=== PATIENT | female | born 1980 | race Caucasian/White ===

== ENCOUNTER 2023-08-22 08:38 | Inpatient (IN) ==
[~2023-08-22 08:38] MED LIST: AMIODARONE 150MG / 100ML D5W IV ONE; AMIODARONE 360MG / 200ML D5W IV ONE; HEPARIN (PORCINE) 1000 UNIT/ML 10 ML (CATH LAB USE ONLY) ONE; HEPARIN SOD (PORCINE) 1000 UNIT/ML ONE; MAGNESIUM SULFATE 1GM / D5W BAG IV ONE; MIDAZOLAM HCL 1 MG/ML 2ML VIAL ONE; NITROGLYCERIN/D5W 100MCG/ML 20ML SYR ONE; RAPID SEQUENCE INDUCTION BAG ONE; TICAGRELOR 90 MG TAB ONE; fentaNYL citrate PF 100 MCG/2 ML VIAL ONE; niCARdipine HCL INJ 2.5 MG/ML 10 ML AMP ONE
[2023-08-22] MEDS ORDERED: ONDANSETRON INJ 2 MG/ML 2 ML VIAL ONE (08:50)
--- NOTE | 2023-08-22 08:55 | Emergency Department Note ---
Impression & Plan ST elevation (STEMI) myocardial infarction, Chest pain ED Provider Note HISTORY OF PRESENT ILLNESS: Patient is a 43-year-old female presenting with chest pain. Patient reports that she had chest pain last night that seem to come and go throughout the evening. She woke up this morning around 7 AM and the pain was significantly worse. Locates pain to the substernal region with radiation into the left arm. Her family called 911. On EMS arrival, twelve-lead EKG showed anterior lateral stroke. She was given 324 of aspirin and 1 spray of nitroglycerin. Immediately after the nitro was given, the patient had ventricular fibrillation arrest and was pulseless. CPR was initiated and she was defibrillated once. She was given 158 mg of amiodarone. EMS called me at medical command because the patient again went into V-fib arrest and was again shocked. She was shocked a total of 5 times and route to the hospital. She would go into sinus rhythm and be alert and oriented after being defibrillated. She was given a total of 300 mg of IV amiodarone and 2 g of IV mag. ROS: as above PHYSICAL EXAM: Constitutional: Patient appears in no acute distress. HENT: Head: Normocephalic and atraumatic. Eyes: EOMI, PERRL Mouth/Throat: Mucous membranes moist. Neck: Trachea midline. Neck supple. Cardiovascular: Tachycardic with regular rhythm. No murmurs, rubs or gallops. Intact distal pulses. Pulmonary/Chest: No respiratory distress. Breath sounds clear and equal bilaterally. No wheezes or rales. Abdominal: Abdomen soft, no tenderness, rebound or guarding. Musculoskeletal: No edema, tenderness or deformity noted. Skin: Warm and dry. No rash, erythema, pallor or cyanosis Psychiatric: Appropriate mood and affect for situation. Neurological: Alert and keenly responsive. CN II-XII grossly intact, moving all extremities equally and fully. MDM: - Vitals signs showed tachycardia - I spoke with EMS and gave orders for patient's repeat 150 mg bolus of IV amiodarone and ordered 2g IV magnesium be given. They showed me the EKGs and a heart alert was called prior to the patient's arrival to the ER. On her arrival, interventional cardiology is present at bedside - EKG on arrival interpreted by myself showed normal sinus rhythm. Rate 105 bpm. Patient is noted to have a STEMI in the anterior lateral leads. - History obtained via patient and EMS. Patient presents with chest pain. Pain initially started last night but significantly worsened this morning and went into her left shoulder. She was noted to have a STEMI with EMS and a heart aler t was called prehospital. She was given 324 of aspirin, nitro spray, 2 g IV mag and a total of 300 mg IV amiodarone prehospital - Chronic conditions affecting care: HTN - Differential diagnoses include, but are not limited to: Acute coronary syndrome; pulmonary embolism; dissection; tension pneumothorax; esophageal rupture; pneumonia - Order placed for continuous cardiac monitoring. At this time, monitor showed rate of 105 bpm with normal sinus rhythm, per my interpretation. - External medical records reviewed. EMS documentation was reviewed. As above. - Discussed case with english tutor, Dr. Price. He was at bedside on patient's arrival and is taking the patient to the [facility]. Patient was given IV heparin bolus and brilinta in ER. - Patient taken to slab installer for further evaluation and management. I provided 38 minutes of critical care time to this patient's care outside of billable procedures. ASSESSMENT AND PLAN: Diagnosis: chest pain; STEMI Plan: to slab installer Allergies Allergies Allergy/AdvReac Type Severity Reaction Status Date / Time No Known Allergies Allergy Mild Verified 11/17/06 14:51 Home Meds Home Medications Medication Instructions Recorded Confirmed Multivit/Min/Iron/Fol Ac/Pren ##0 11/17/06 ( Vitamin) Previous Rx's Medication Instructions Recorded Ibuprofen (Motrin) 600 mg PO Q6HR ##30 03/12/11 Results & Data (ED) Vital Signs Vital Signs - 24 hr 08/22/23 08:39 Temperature 36.8 C Temperature Source Temporal Artery Scan Pulse Rate 103 H Respiratory Rate 18 Sepsis Recent Fever Within 48 Hours No Sepsis New/Unexplained Change in Mental Status No Sepsis Action Taken by Nursing No Action Required Discharge Plan Visit Data Chief Complaint: Heart Alert Stated Complaint: HEART ALERT, POST ARREST ED Provider: Melida Nava Discharge Problem: ST elevation (STEMI) myocardial infarction, Chest pain Discharge Instructions Interventions: ED Discharge Assessment Last Done: 08/22/23 08:53 Forms Stand Alone Forms: My [employer] Prescriptions Prescriptions: No Action Multivit/Min/Iron/Fol Ac/Pren ( Vitamin) tablet Qty: 0 Ibuprofen (Motrin) 600 MG tablet 600 mg PO Q6HR Qty: 30 1RF Rx Instructions: PRN PAIN
[2023-08-22 09:01] LABS: Basophils # (auto) 0.09 K/uL (0.00-0.20); Basophils % (auto) 0.4 %; Eosinophils # (auto) 0.09 K/uL (0.00-0.50); Eosinophils % (auto) 0.4 %; Hematocrit (blood only) 38.3 % (37.0-47.0); Hemoglobin 14.4 g/dl (12.0-16.0); Immature Granulocytes # (auto) 0.19 K/uL (0.01-0.20); Immature Granulocytes % (auto) 0.8 %; Lymphocytes # (auto) 3.65 K/uL (1.20-3.40); Lymphocytes % (auto) 15.7 %; Mean Corpuscular Hemoglobin 33.1 pg (25.0-34.0); Mean Corpuscular Hgb Conc 37.6 g/dL (32.0-36.0); Mean Platelet Volume 9.2 fL (9.4-12.4); Monocytes # (auto) 0.81 K/uL (0.11-0.59); Monocytes % (auto) 3.5 %; Neutrophils # (auto) 18.37 K/uL (1.40-6.50); Neutrophils % (auto) 79.2 %; Platelet Count 359 K/uL (130-400); RDW Coefficient of Variation 13.4 % (11.5-14.5); RDW Standard Deviation 43.2 fL (36.4-46.3); Red Blood Count 4.35 M/uL (4.20-5.40)
[2023-08-22 09:06] LABS: iSTAT Creatinine 0.9 mg/dl (0.6-1.3); iSTAT Hemoglobin 13.3 g/dl (12.0-16.0); iSTAT Ionized Calcium 1.12 mmol/l (1.12-1.32); iSTAT Potassium 3.3 mmol/L (3.3-5.0)
[2023-08-22 09:20] LABS: Albumin Level 3.9 gm/dl (3.4-5.0); Anion Gap 12 (3-11); Bilirubin,Total 1.2 mg/dl (0.2-1.0); Calcium 8.8 mg/dl (8.6-10.3); Carbon Dioxide 17 mmol/L (21-32); Chloride 107 mmol/L (98-107); Potassium 3.4 mmol/L (3.5-5.1); Sodium 136 mmol/L (136-145)
[2023-08-22 09:22] LABS: Partial Thromboplastin Ratio 0.8; Partial Thromboplastin Time 22 Seconds (21-31); Prothrombin Time 10.9 Seconds (9.0-12.0)
[2023-08-22 09:26] LABS: Alanine Aminotransferase 280 U/L (7-52); Albumin Globulin Ratio 1.7 (0.9-2); Alkaline Phosphatase 60 U/L (34-104); Aspartate Aminotransferase 249 U/L (13-39); BUN Creatinine Ratio 15.9 (10-20); Blood Urea Nitrogen 14 mg/dl (6-23); Est GFR (Non-African American) 79.3 ml/min; Globulin 2.3 gm/dl (2.5-4.0); Glucose 251 mg/dl (70-99(Fasting)); Total Protein 6.2 gm/dl (6.0-8.3)
[2023-08-22 09:32] LABS: Troponin I High Sensitivity 14.3 pg/ml (0-14)
--- NOTE | 2023-08-22 09:32 | History & Physical Report ---
Date of Service August 22, 2023 History of Present Illness Primary Care Provider: NO PCP Allergies Allergy/AdvReac Type Severity Reaction Status Date / Time No Known Allergies Allergy Mild Verified 11/17/06 14:51 Home Medications Medication Instructions Recorded Confirmed Type Multivit/Min/Iron/Fol Ac/Pren ##0 11/17/06 History ( Vitamin) Ibuprofen (Motrin) 600 mg PO Q6HR ##30 03/12/11 Rx Results & Data Results & Data Vital Signs (Past 12 Hours) Vital Signs Temp Pulse Resp 08/22/23 08:44 104 H 08/22/23 08:39 36.8 C 103 H 18 PG Care Time/CCT Total # of Minutes Spent Total Time Spent with Patient: Total time spent is greater than 50% in coordination of care (as documented) at patient's floor/unit and/or counseling patient: Coding
[2023-08-22] MEDS ORDERED: AMIODARONE / D5W 360 MG/200 ML BAG IV ONE (09:36)
[2023-08-22] MEDS ORDERED: 0.2 MICRON FILTER SET 1 EACH IV STA (09:36)
[2023-08-22] MEDS ORDERED: ONDANSETRON INJ 2 MG/ML 2 ML VIAL IV PRN (09:46)
[2023-08-22] MEDS ORDERED: ATROPINE SULFATE 0.1 MG/ML 10ML SYR IV PRN (09:46)
[2023-08-22] MEDS ORDERED: NITROGLYCERIN SL 0.4 MG/TAB TAB SL PRN (09:46)
--- NOTE | 2023-08-22 09:55 | Pre Anesthesia Assessment ---
Date of Service August 22, 2023 Pre Sedation Assessment Vital Signs Temp Pulse Resp 08/22/23 08:44 104 H 08/22/23 08:39 36.8 C 103 H 18 Cardiovascular RRR, no murmur, no edema Respiratory normal respiratory effort, lungs clear to auscultation Pre-Sedation Airway Assessment MALLAMPATI II ASA 4 Notes The planned sedation has been discussed with the patient. Informed Consent was obtained. I have identified the patient, determined the appropriateness of sedation and have assessed the patient immediately prior to the procedure. All medicine(s) and interventions are by my order.
--- NOTE | 2023-08-22 09:58 | Post Anesthesia Assessment ---
Date of Service August 22, 2023 Post Sedation Assessment Vital Signs Temp Pulse Resp 08/22/23 08:44 104 H 08/22/23 08:39 36.8 C 103 H 18 Recovery Score Activity: Moves 4 extremities Respiration: Deep Breath/Cough Circulation: +/-20% PreAnes Value Consciousness: Fully Awake Oxygen Saturation: > 92% On Room Air Discharge Sedation Level of Care: Fast Track Phase II Post Sedation Plan On clinical assessment, the patient appears to have tolerated the sedation without complications. Patient is recovering as anticipated. Patient will continue to be monitored by nursing and may be discharged when sedation discharge criteria are met per below protocol. Upon Completions of procedure up to 15 minutes continue every 5 minute vital signs and the P.A.R. score; then discharge to a Phase I or Fast Track to Phase II per the following guidelines: * Discharge Patient to appropriate Phase II area if PAR is 8 or greater or return to pre- procedure baseline. The post - procedure orders will be as directed. * If PAR score is less than 8 or not return to pre-procedure baseline then patient will follow Phase I monitoring till PAR is reached for Phase II. The Phase I may be done in procedure room or may call to secure a Phase I area. * If naloxone or flumazenil are used for reversal, hold in Phase I for continued monitoring from when last reversal dose was given for a minimum of 60 minutes or longer pending the nurse and/or physician discretion of patient condition before discharge to Phase II. Please call the Sedation Physician to re-evaluate and complete post-note for discharge to Phase II area. Do NOT discharge from procedure sedation or Phase 1 until post- sedation evaluation note is complete by procedure /sedation MD Sedation Discharge Instructions to be given to the patient at discharge to home. [facility] Procedure Codes (Charges) Indication for Procedure Indication for procedure: CARDIAC ARREST MARLENE-LATERAL STEMI Sedation/Anesthesia Procedure 1: Sedation/Anesthesia: 84610 Mod Sedation by the same physician;Init15 Min Child Age 5 & Up (start 55) Total Sedation Time (minutes): 43 Procedure 2: Sedation/Anesthesia: 45352 Mod Sedation by the same physician; Ea [id number] Minutes (additional 28 min, end 0938) Total Sedation Time (minutes): 43
[2023-08-22] MEDS ORDERED: PHARMACY GLYCEMIC MGMT CONSULT PRN (10:33)
--- NOTE | 2023-08-22 10:51 | History & Physical Report ---
Date of Service August 22, 2023 Assessment & Plan (1) ST elevation (STEMI) myocardial infarction: Plan: Patient with anterio-lateral STEMI with 100% occlusion of the LAD. Now s/p CARLENE placement in the LAD by Dr. Easley on 08/22. Stable on amiodarone gtt. Now on DAPT with Brilinta and ASA. Started on atorvastatin 40 mg and metoprolol 25 mg BID. Follow electrolyte abnormalities with AM BMP. AM BMP - Goal K > 4, Mg > 2 Lipid level and HbA1c pending DAPT - Brilinta and ASA ECHO ordered CXR ordered Requiring ICU level care in the post-interventional period. Rest of management per biomechanical engineer. (2) Cardiac arrest with successful resuscitation: Plan: Stable on amiodarone gtt. Continue to monitor with continuous cardiac monitoring. (3) Hyperglycemia: Plan: No know history of diabetes. Screening glucose level in 2021 was < 90. May be reactive in the setting of recent MA. Glycemic consult placed. Continue to natasha tor. (4) Hypertension: Plan: Holding home olmesartan in setting of recent MA and soft BPs. (5) Hypokalemia: Plan: Monitor and replete as indicated (6) Anxiety: Plan: Continue home citalopram. (7) Status post insertion of drug-eluting stent into left anterior descending (LAD) artery: Plan: See above (8) Ventricular fibrillation: Plan: See above Plan Code status: full DVT ppx: on DAPT FENGI: Heart Healthy Dispo: ICU level care in the post-interventional period Admission and Anticipated Discharge Date Admission Date: August 22, 2023 History of Present Illness Chief Complaint: chest pain Primary Care Provider: NO PCP 43 y/o female here for evaluation of chest pain. Patient with intermittently chest pain the evening of 08/21. Patient significantly worse this AM with localization to the substernal region and radiates into the left arm. EMS was called and EKG showed anterior lateral stroke. Patient ASA loaded and given a spray of nitro. Patient then went into ventricular fibrillation and was pulseless. CPR initiated and several shocks were administered during the route to the hospital with a total of 5 shocks, 300 mg IV amiodarone, 2 g of IV mag. Patient was seen at bedside by Dr. Easley and taken to the mini lab operator. 100% occlusion in LAD thus CARLENE placed. Patient now on amiodarone gtt and stable in the ICU. Upon my interview, patient denies any chest pain, nausea, calf tenderness, or shortness of breath. Symptoms resolved at present. Patient generally in good health. Screening lipids and glucose have been normal in the past. Hypertension well controlled on olmesartan. Allergies Allergy/AdvReac Type Severity Reaction Status Date / Time No Known Allergies Allergy Mild Verified 11/17/06 14:51 Home Medications Medication Instructions Recorded Confirmed Type Multivit/Min/Iron/Fol Ac/Pren ##0 11/17/06 History ( Vitamin) Ibuprofen (Motrin) 600 mg PO Q6HR ##30 03/12/11 Rx citalopram 10 mg tablet 5 - 10 mg PO DAILY 08/22/23 08/22/23 History olmesartan 20 mg tablet 20 mg PO DAILY 08/22/23 08/22/23 History Past Med/Surg History Social History Smoking Status: Former smoker Second Hand Exposure: No; Do You Dip or Chew Tobacco: No; Hx Alcohol Use: Yes Alcohol type: beer, wine and hard liquor Hx Substance Use: No Communication Ability: Effective Telecommunication Operator Required: No Beliefs That Will Affect Care: None Current Living Situation: Family Feels Safe at Home: Yes Assistive Devices: Contacts and Glasses Review of Systems Review of Systems: See HPI Physical Exam Physical Exam: Gen: well appearing female in NAD, resting comfortably in bed HEENT: AT NC MMM CV: RRR, no m/r/g, right radial hemostasis band in place with no strike through, cap refill < good perfusion of right arm Resp: CTAB no wheezing no increased work of breathing no accessory muscle use Abd: soft, non-distended MSK: no obvious deformities Skin: no rashes or bruising noted Neuro: alert and oriented Psych: appropriate mood and affect, tearful Results & Data Results & Data Vital Signs (Past 12 Hours) Vital Signs Temp Pulse Resp 08/22/23 08:44 104 H 08/22/23 08:39 36.8 C 103 H 18 Supervising Physician Co-Signing Physician Notes I personally saw and examined the patient. I verified all wilcox points and agree with Julia Hughes PA-C with the following exceptions and/or additions: Resident Activity Tracking Resident Involvement: Resident Care Provided Care Provided: Adult Hospital Medicine
[2023-08-22 11:02] LABS: Hematocrit (blood only) 39.9 % (37.0-47.0); Hemoglobin 14.7 g/dl (12.0-16.0); Mean Corpuscular Hemoglobin 32.9 pg (25.0-34.0); Mean Corpuscular Hgb Conc 36.8 g/dL (32.0-36.0); Mean Corpuscular Volume 89.3 fL (80.0-100.0); Mean Platelet Volume 9.4 fL (9.4-12.4); Platelet Count 264 K/uL (130-400); RDW Coefficient of Variation 13.4 % (11.5-14.5); RDW Standard Deviation 43.6 fL (36.4-46.3); Red Blood Count 4.47 M/uL (4.20-5.40)
--- NOTE | 2023-08-22 11:09 | Pharmacy Report ---
Pharmacy Glycemic Short Note 2 - Date of Service August 22, 2023 - Glycemic Short BSG Results (Last 24 hours): 08/22/23 08/22/23 08:47 08:52 Glucose 251 H POC Glucose (other) 251 H OUTPATIENT ANTIDIABETIC REGIMEN: * None (no prior documented h/o DM) ASSESSMENT: * Patient admitted to ICU for out of hospital cardiac arrest / v fib / STEMI. She is now s/p CARLENE to LAD * No prior h/o of documented DM, A1c ordered - but results are pending * Hyperglycemia observed on chemistry and initial fingerstick BSG - this could be related to acute stressors and could be short lived. Will initiate correctional insulin Q 4 hrs initially using weight and mod/severe stress level. Will reassess need for basal and prandial insulin once additional BSGs collected following correction alone and once A1c available for review. PLAN FOR INPATIENT GLYCEMIC CONTROL: * Basal insulin * None at this time * Bolus insulin * NovoLog per scale Q 4 hrs * Goal Range: Low 110 mg/dL - High 140 mg/dL * Correction Factor: 30 mg/dL/unit * Nutritional / Prandial insulin: None at this time.
[2023-08-22 11:16] LABS: Anion Gap 9 (3-11); BUN Creatinine Ratio 15.4 (10-20); Blood Urea Nitrogen 12 mg/dl (6-23); Calcium 8.5 mg/dl (8.6-10.3); Carbon Dioxide 20 mmol/L (21-32); Chloride 107 mmol/L (98-107); Est GFR (African American) 106.4 ml/min; Est GFR (Non-African American) 91.8 ml/min; Glucose 168 mg/dl (70-99(Fasting)); Magnesium 2.3 mg/dl (1.7-2.4); Potassium 3.4 mmol/L (3.5-5.1); Sodium 136 mmol/L (136-145)
[2023-08-22 11:21] LABS: Basophils # (auto) 0.08 K/uL (0.00-0.20); Basophils % (auto) 0.3 %; Echinocytes 1+; Eosinophils # (auto) 0.01 K/uL (0.00-0.50); Immature Granulocytes # (auto) 0.24 K/uL (0.01-0.20); Lymphocytes # (auto) 1.27 K/uL (1.20-3.40); Lymphocytes % (auto) 5.4 %; Monocytes # (auto) 0.85 K/uL (0.11-0.59); Monocytes % (auto) 3.6 %; Neutrophils # (auto) 21.25 K/uL (1.40-6.50); Neutrophils % (auto) 89.7 %
[2023-08-22 11:25] LABS: Troponin I High Sensitivity 1443.3 pg/ml (0-14)
[2023-08-22] MEDS ORDERED: ICU Protocol for HYPERglycemia SCH (11:30)
[2023-08-22] MEDS: SODIUM CHLORIDE 0.9% 1,000 ML IV SCH ×2 (11:36→22:06)
[2023-08-22] MEDS: ATORVASTATIN 40 MG TAB PO SCH (11:37)
[2023-08-22] MEDS ORDERED: INSULIN ASPART PER UNIT CHARGE SC SCH (12:00)
--- NOTE | 2023-08-22 12:07 | Electrocardiogram Report ---
Test Reason : Blood Pressure : / mmHG Vent. Rate : 086 BPM Atrial Rate : 086 BPM P-R Int : 156 ms QRS Dur : 082 ms QT Int : 388 ms P-R-T Axes : 073 034 050 degrees QTc Int : 464 ms Normal sinus rhythm Normal ECG No previous ECGs available Confirmed by Scott Monsalve ([id number]) on 08/22/2023 12:06:53 PM Referred By: REFERRED SELF Confirmed By:Scott Monsalve
[2023-08-22] MEDS ORDERED: AMIODARONE / D5W 150 MG/100 ML BAG IV STA (12:16)
[2023-08-22] MEDS ORDERED: AMIODARONE IV BOLUS & DRIP IV STA (12:16)
[2023-08-22] MEDS ORDERED: STAT IV Infusion **Titration per Protocol STA (12:16)
--- NOTE | 2023-08-22 12:23 | Critical Care Consultation ---
Date of Consultation August 22, 2023 Assessment & Plan (1) ST elevation (STEMI) myocardial infarction: Reason Critically Ill: Status post cardiac arrest secondary to ventricular fibrillation with return of spontaneous circulation secondary to ST elevation [place] secondary to ischemic heart disease PLAN: Neuro: Resp: Tolerating room air CV: Ischemic heart disease Status post STEMI - Dual antiplatelet therapy -Statin therapy, beta-janette -Echo pending Fluids/Renal: Mild hypokalemia ID: No indication for anti-infectives GI/Nutrition: Transaminitis -Acute hepatitis panel in a.m., continue to trend possibly shock liver secondary to V-fib arrest Fasting lipid profile in morning Heme: Leukocytosis: Acute phase reactant DVT prophylaxis: Lovenox Endocrine: ICU hyperglycemia protocol Hyperglycemia -A1c within acceptable limits anticipate hyperglycemia is acute phase reaction Vascular access: Peripheral IVs Code Status: Full code Disposition: ICU (2) Ventricular fibrillation: (3) Cardiac arrest with successful resuscitation: (4) Hypertension: (5) Status post insertion of drug-eluting stent into left anterior descending (LAD) artery: (6) Ischemic heart disease due to coronary artery obstruction: Supervising Physician Co-Signing Physician Notes I have personally spent 35 minutes of critical care time in the direct management of this patient. This is a life/limb threatening event. This includes time spent evaluating patient, direct bedside care, chart review, placing orders, interpretation of diagnostic studies, discussion with consultants, patient, and/or family members regarding treatment decisions, as well as other required patient management activities. This time is exclusive of all separately billable procedures, and teaching time and separate from and in addition to any other critical care service time. History of Present Illness Reason for Consultation: Status postcardiac arrest with spontaneous return of circulation, status post ST elevation [place] underwent cardiac cath Attending Physician: Brenton Porter MD History of Present Illness Patient is a 43-year-old female with a significant past medical history for hypertension presents to the ICU from the cardiac [facility] where she received a drug-eluting stent to the LAD. Additional history as the patient had been having chest pain off and on it got worse this morning which the family called 911. Upon EMSs arrival and during their evaluation they treated the placement with nitroglycerin the patient suffered a ventricular fibrillation arrest. In total she was shocked 5 times and started on amiodarone. During my evaluation the chest pain by enlarge part has resolved. She reports that she has a strong family history of cardiac disease before the age of 55 including a sister who suffered a heart attack in her 40s. She does not smoke she occasionally drinks alcohol denies any recreational drug use. Allergies Allergy/AdvReac Type Severity Reaction Status Date / Time No Known Allergies Allergy Mild Verified 11/17/06 14:51 Home Medications Medication Instructions Recorded Confirmed Type Multivit/Min/Iron/Fol Ac/Pren ##0 11/17/06 History ( Vitamin) Ibuprofen (Motrin) 600 mg PO Q6HR ##30 03/12/11 Rx citalopram 10 mg tablet 5 - 10 mg PO DAILY 08/22/23 08/22/23 History olmesartan 20 mg tablet 20 mg PO DAILY 08/22/23 08/22/23 History Patient History Social History Smoking Status: Former smoker Second Hand Exposure: No; Do You Dip or Chew Tobacco: No; Tobacco Cessation Education Requested by Patient: No Hx Alcohol Use: Yes Alcohol type: beer, wine and hard liquor Hx Substance Use: No Communication Ability: Effective Etl Informatica Architect Required: No Beliefs That Will Affect Care: None Current Living Situation: Family Other Information That Helps Us Care for You: No Feels Safe at Home: Yes Safety Concerns: Feels Safe At This Time Assistive Devices: Contacts and Glasses Physical Exam Physical Exam: General: Alert. nontoxic. Skin: Warm, dry, Head: Atraumatic Ears, nose, mouth and throat: airway patent Cardiovascular: Normal peripheral perfusion Respiratory: no respiratory distress Gastrointestinal: Non distended Musculoskeletal: No deformity Results & Data Results & Data Vital Signs (Past 12 Hours) Vital Signs Temp Pulse Pulse Resp BP BP Pulse Ox 08/22/23 11:50 08/22/23 11:45 90 12 99 08/22/23 11:45 128/87 08/22/23 11:44 91 H 08/22/23 11:30 103 H 21 96 08/22/23 11:30 102/75 08/22/23 11:20 92 H 14 113/85 96 08/22/23 11:15 113/85 08/22/23 11:15 90 12 98 08/22/23 11:00 95 H 16 97 08/22/23 11:00 104/86 08/22/23 10:45 97 H 13 99 08/22/23 10:45 101/81 08/22/23 10:30 98 H 14 97 08/22/23 10:30 105/83 08/22/23 10:15 89 20 98 08/22/23 10:15 114/82 08/22/23 10:00 110/90 08/22/23 10:00 99 H 23 97 08/22/23 09:56 92 H 23 99 08/22/23 09:56 115/80 08/22/23 08:44 104 H 08/22/23 08:39 36.8 C 103 H 18 O2 Del Method 08/22/23 11:50 Room Air 08/22/23 11:45 08/22/23 11:45 08/22/23 11:44 08/22/23 11:30 08/22/23 11:30 08/22/23 11:20 Room Air 08/22/23 11:15 08/22/23 11:15 08/22/23 11:00 08/22/23 11:00 08/22/23 10:45 08/22/23 10:45 08/22/23 10:30 08/22/23 10:30 08/22/23 10:15 08/22/23 10:15 08/22/23 10:00 08/22/23 10:00 08/22/23 09:56 08/22/23 09:56 08/22/23 08:44 08/22/23 08:39 Coding Level of Care Code 55976 CRITICAL CARE 1ST 30-74M Diagnoses ST elevation myocardial infarction involving left anterior descending (LAD) coronary artery I21.02 Involved coronary artery: LAD coronary artery Ventricular fibrillation I49.01 Cardiac arrest with successful resuscitation I46.9 Primary hypertension I10 Hypertension type: primary hypertension Status post insertion of drug-eluting stent into left anterior descending (LAD) artery Z95.5 Ischemic heart disease due to coronary artery obstruction I24.0; I25.9 (1) ST elevation (STEMI) myocardial infarction Involved coronary artery: LAD coronary artery Qualified Code(s): I21.02 - ST elevation (STEMI) myocardial infarction involving left anterior descending coronary artery (4) Hypertension Hypertension type: primary hypertension Qualified Code(s): I10 - Essential (primary) hypertension
[2023-08-22 12:24] LABS: Estimated Average Glucose 77 mg/dl; Hemoglobin A1C 4.3 % (4.5-5.6)
[2023-08-22] MEDS: ACETAMINOPHEN 325 MG TAB PO PRN (12:32)
--- NOTE | 2023-08-22 13:23 | XRay Report ---
XR chest 1V portable HISTORY: 43 years-old Female cardiac arrest s/p CPR acute chest pain COMPARISON: None TECHNIQUE: AP view of the chest FINDINGS: Cardiac silhouette is mildly enlarged. Coronary arterial stent. No pneumothorax, pleural effusion, ai rspace consolidation or pulmonary edema. Bones appear grossly intact by radiography. IMPRESSION: No acute process. ACT 112: Negative or not required by law. The above report was generated using voice recognition software. It may contain grammatical, syntax o r spelling errors. Electronically signed by: Karthik Arango M.D. 08/22/2023 1:21 PM
[2023-08-22] MEDS ORDERED: POTASSIUM CHLORIDE / WTR 10 MEQ/100 ML PLCT IV SCH (14:00)
[2023-08-22] MEDS ORDERED: POTASSIUM CHLORIDE CRTAB 20 MEQ TABCR PO STA (14:27)
[2023-08-22] MEDS: AMIODARONE / D5W 360 MG/200 ML BAG IV SCH (14:46)
--- NOTE | 2023-08-22 14:51 | Cardiac Catheterization ---
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 Cardiac Status Clinical evaluation leading to the procedure CAD Presenation: STEMI Anginal Classification: CCS IV Heart Failure: No Cardiogenic Shock within 24 Hours: No Cardiac Arrest within 24 Hours: Yes Imaging Studies Past 6 Months: No Stress Studies Past 6 Months: No STEMI OR Non-STEMI Symptom Onset Date: 08/22/23 Thrombolytics: No Coronary Anatomy Dominant: Right Left Main (% Stenosis): Normal LAD (% Stenosis): Proximal (100%) Circumflex (% Stenosis): Normal (Mild diffuse) OM1 (% Stenosis): Ostial (30 to 40%) OM2 (% Stenosis): Normal RCA (% Stenosis): Proximal (Mild diffuse), Mid (40 to 50% focal) and Distal (Mild diffuse) R PDA (% Stenosis): Proximal (30%) R PL1 (% Stenosis): Normal (Mild diffuse) Ramus (% Stenosis): Normal Diagnostic Physicians Name: Ronald Price MD, PhD Closure Device Percutaneous Entry Location: Radial Closure Device: Radial Band Recommendations: Medical Therapy and/or Counseling and PCI without planned CABG PCI Indication: PCI for STEMI - Unstable Lesion Segment Name: Proximal LAD Culprit Artery: Yes Stenosis Prior to Rx (%): 100% Chronic Total Occlusion: No Pre-Procedure NAIMA Flow: 0 Previously Treated Lesion: No Lesion Complexity: Non-High/Non-C Lesion Length (mm): 22 Thrombus Present: Yes Bifurcation Lesion: Yes Guidewire Across Lesion: Yes Intraprocedure Events Significant Disection: No Perforation: No Cardiac Cath Procedure Full Procedure Date August 22, 2023 Pre-Procedure Diagnosis Pre-Procedure Diagnosis: STEMI and Arrhythmia AUC Score AUC Score: 09 Post-Procedure Diagnosis Post-Procedure Diagnosis: Severe CAD and Successful PCI Procedure(s) Performed Procedure(s) Performed: Coronary Angiography and Drug Eluting Stent Records And Tape Recordings Engineer Ronald Price MD, PhD Estimated Blood Loss Estimated Blood Loss: 5 mL Medication(s) Medication(s): Fentanyl, Heparin, Lidocaine 1%, Nicardipine, Nitroglycerin and Versed Summary of Findings Brief description: Patient was brought emergently to the cardiac catheterization suite where she was shaved and prepped in a sterile fashion. Sedated using IV Versed and fentanyl. Soft tissues of the right wrist were anesthetized using 2 mL of 1% Xylocaine. The right radial artery was accessed with a modified Seldinger technique and a 6 Palestinian radial artery glide sheath was placed. Patient was provided anticoagulation with IV heparin and antispasmodics including nicard ipine and nitroglycerin. All catheters were advanced and exchanged over a 0.035 J-tip wire. Left coronary angiography was performed in orthogonal views with a 6 Palestinian EBU 3.0 guide catheter. Based on the patient's findings and electrical instability we proceeded immediately to PCI. ACT was checked intermittently and additional heparin provided IV as needed to maintain therapeutic anticoagulation. BMW reversal guidewire advanced through the guide catheter and positioned distally in the LAD. Initial predilatation using a 2.5 x 12 mm sprinter balloon up to 14 quinton. Balloon removed and assisted living assistant angiography performed. A second BMW universal guidewire was advanced and used to cross the ostium of the diagonal to ensure access to the diagonal if needed. Predilatation of the LAD was then resumed using a 3.0 x 15 mm sprinter balloon up to 12 quinton. The balloon was then removed. Foam Tank Laminator angiography was performed and we proceeded with stent implantation. A 3.0 x 26 mm Chuy drug-eluting stent was then advanced and positioned across the lesion in the proximal to the mid LAD. This was initially deployed using 10 quinton. The BMW universal guidewire in the diagonal was then retracted into the guide catheter. A second inflation was performed for final deployment at 14 quinton. Stent balloon was removed. Postdilatation of the proximal and mid stent were performed using a 3.25 by 8 mm NC trek balloon. 13 quinton at the mid to early distal stent, 15 quinton in the mid stent, and 18 quinton in the proximal stent. A final postdilatation using a 3.5 x 9 mm NC sprinter balloon. From proximal to mid stent at 14 quinton, 12 quinton, and 12 quinton. Balloon was removed. Final angiographic evaluation in orthogonal views. Guidewires were removed. Guide catheter was then exchanged over the wire for the 5 Palestinian JR4 diagnostic catheter so that diagnostic coronary angiography could be completed. Right coronary angiography was performed in orthogonal views with a 5 Palestinian JR4 diagnostic catheter. Diagnostic catheter was then removed. Radial artery sheath was removed. Hemostasis was obtained using the TR band. Patient remained hemodynamically stable and was now asymptomatic. She was returned to the recovery area. This ended the case. Coronary angiography findings: JHG-tectk-burmnqj vessel trifurcating into LAD, circumflex, and ramus. No disease. LAD-this is 100% occluded proximally with NAIMA 0 flow. Large thrombus burden. Ramus-this is small without disease. FUj-cpgrh-kdksoec and nondominant. Proximal segment in the AV groove has mild disease of less than 20% narrowing. Gives a large caliber branching OM1 which has ostial 30 to 40% stenosis and then no more than mild luminal irregularities. The mid AV groove vessel remains large and has diffuse mild disease. Provides a small to medium caliber OM 2. The OM 2 and the small caliber distal AV groove circumflex have no more than mild luminal irregularities. RCA-this is large caliber and dominant. Proximally there is diffuse mild disease. Mid segment has focal 40 to 50% stenosis with otherwise mild scattered plaques. Distally there is mild diffuse disease less than 30% narrowing. The vessel bifurcates into a large PDA and large branching posterolateral. These vessels have diffuse mild disease no more than 30% stenosis. PCI of LAD-0% residual stenosis Post PCI the mid and distal LAD are visualized. The first diagonal is medium to large with an ostial 50% stenosis which is "jailed". Proximal gives a large septal branch. The mid and distal vessel have mild scattered disease. NAIMA-3 flow post PCI No evidence of dissection or perforation post PCI Summary: 1. Successful PCI with implantation of a long and large caliber drug-eluting stent to the proximal to mid LAD. 2. Severe LAD stenosis is culprit for cardiac arrest and TX. Patient has mild residual coronary disease as described. 3. Patient will be on dual antiplatelet therapy using aspirin and Brilinta to complete 1 year. 4. Patient will be initiated on guideline directed medical therapy for secondary prevention of coronary disease to include; low-dose aspirin, high intensity statin therapy, beta-janette, plus or minus BERNABE inhibitor/ARB as tolerated. 5. Strongly recommend CARDIAC REHAB be initiated as an outpatient. Hemodynamics Rest Ao:: 123/88 mmHg Final Ao: 106/89 mmHg LV: Not performed Recommendations Recommendations: Medical Therapy and/or Counseling and PCI without planned CABG Radiation Exposure (mGy) 1175 mGy, fluoroscopy time 11.7 minutes Contrast (mls) 125 Anesthesia 1 mg IV Versed, 25 mcg IV fentanyl. Start time 0855, end time 0938 Procedural Complication(s) None Disposition ICU I attest to the content of the Intraoperative Record and any orders documented therein. Any exceptions are noted below. [facility] Card Cath Procedure Codes Cardiac Catheterization Procedure 1: Cardiovascular Cath Procedures: 72568 Coronaries Moderate Sedation Procedure 1: Sedation/Anesthesia: 33189 Mod Sedation by the same physician;Init15 Min Child Age 5 & Up (Initial 15 min, start 0855) Procedure 2: Sedation/Anesthesia: 05336 Mod Sedation by the same physician; Ea [id number] Minutes (Additional 28 min, END 0938) Stenting Procedure 1: Cardiovascular Stent Procedures: 65562 Perc transluminal revascularization of acute sub/total occl, aMI (LAD) PG Care Time/CCT Total # of Minutes Spent Total Time Spent with Patient: Total time spent is greater than 50% in coordination of care (as documented) at patient's floor/unit and/or counseling patient:
--- NOTE | 2023-08-22 15:20 | Cardiology Consultation ---
Date of Consultation August 22, 2023 Assessment & Plan (1) Cardiac arrest with successful resuscitation: Secondary to proximal LAD occlusion. We will obtain an echocardiogram to evaluate EF. Continue to monitor. Complete the amiodarone protocol. (2) ST elevation (STEMI) myocardial infarction: Occlusion of the proximal LAD which was predominantly thrombotic but also with atherosclerosis. Successful PCI performed with a large caliber long drug- eluting stent covering the proximal and mid LAD lesion. Good angiographic result with return of NAIMA-3 flow. The diagonal ostium is jailed but with NAIMA- 3 flow. She has mild to moderate residual disease in the right coronary as described. She will remain on dual antiplatelet therapy with aspirin 81 mg daily and Brilinta 90 mg p.o. twice daily to complete at least 1 year. She is to be initiated on guideline directed medical therapy for secondary prevention of coronary disease. This will include high intensity statin therapy (a atorvastatin 40 mg daily), beta-janette (metoprolol tartrate 25 mg p.o. twice daily), and depending on her echo we may also initiate an BERNABE inhibitor or angiotensin receptor janette if her blood pressure would allow. Further recommendations pending results of echocardiogram. (3) Hypertension: Previous regimen with olmesartan. We are adding beta-janette and holding BERNABE or ARB at this time. We may resume an angiotensin receptor janette prior to discharge if her blood pressure will allow. 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 High intensity statin therapy is recommended. Target LDL reduction is greater than or equal to 50% of untreated baseline LDL. We will obtain a fasting lipid panel in the morning. She has been started on a atorvastatin 40 mg daily. Plan She will remain in the ICU for 24 hours postarrest. Initiate therapy as above. Assuming that the echo does not demonstrate any concerning findings and she has no complications within the next 48 hours she would then be appropriate for discharge. I do strongly recommend that she begin outpatient cardiac rehab after discharge. I will follow. History of Present Illness Reason for Consultation: Cardiac arrest Acute NC Attending Physician: Brenton Porter MD History of Present Illness 43-year-old female without prior cardiac history developed sudden onset chest pain while at home. She then developed cardiac arrest. She was treated and transported by EMS who states she was shocked twice at her home for ventricular fibrillation and 3 times and route for ventricular fibrillation. Each time she immediately regained consciousness and was appropriately responsive. She received 150 mg IV amiodarone x 2. I met her in the emergency department where she was awake with good blood pressure. She had persistent chest discomfort and her EKG suggested extensive anterolateral ST elevations suggesting proximal LAD occlusion. As she was being attended to and made ready for admission I spoke with her regarding need for emergent cardiac catheterization. Informed consent was obtained from him with the consent being signed by him. She was then taken emergently to the cardiac catheterization suite where she underwent coronary angiography and PCI of the LAD with implantation of a large caliber long drug-eluting stent. Good angiographic results and resolution of both her pain and ST elevations. She is now admitted to the intensive care unit for further workup and management. She reports that she did have some chest burning on Saturday and some chest tightness last night preceding her event this morning. She tells me her father of cardiac arrest at age 45. Her sister had myocardial infarction at age 46. She denies any preceding anginal/exertional chest pain, dyspnea on exertion, syncope, near syncope, orthopnea, PND, racing heartbeat, palpitations, or edema. She is active. She works as a teacher at the [employer]. Allergies Allergy/AdvReac Type Severity Reaction Status Date / Time No Known Allergies Allergy Mild Verified 11/17/06 14:51 Home Medications Medication Instructions Recorded Confirmed Type Multivit/Min/Iron/Fol Ac/Pren ##0 11/17/06 History ( Vitamin) Ibuprofen (Motrin) 600 mg PO Q6HR ##30 03/12/11 Rx citalopram 10 mg tablet 5 - 10 mg PO DAILY 08/22/23 08/22/23 History olmesartan 20 mg tablet 20 mg PO DAILY 08/22/23 08/22/23 History Patient History Social History Smoking Status: Former smoker Second Hand Exposure: No; Do You Dip or Chew Tobacco: No; Tobacco Cessation Education Requested by Patient: No Hx Alcohol Use: Yes Alcohol type: beer, wine and hard liquor Hx Substance Use: No Communication Ability: Effective 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 Sclera are anicteric. ENMT: Oral mucosa is pink moist and intact Neck: No JVD or bruits Respiratory: Clear to auscultation bilaterally. No wheezing, rhonchi, or rales. Cardiovascular: Regular rate and rhythm. S4 gallop. No rubs or murmurs appreciated. No edema. 2+ distal pulses. Musculoskeletal: no cyanosis or clubbing, extremities motor strength 5/5 Neurologic: Cognition is intact. Speech is fluent. No focal deficits. No tremor. Psychiatric: A+Ox3, euthymic affect Results & Data Vital Signs (Past 12 Hours) Vital Signs Temp Pulse Pulse Resp BP BP Pulse Ox 08/22/23 12:15 111/89 08/22/23 12:15 93 H 18 97 08/22/23 12:00 88 14 96 08/22/23 12:00 105/84 08/22/23 11:50 08/22/23 11:45 90 12 99 08/22/23 11:45 128/87 08/22/23 11:44 91 H 08/22/23 11:30 103 H 21 96 08/22/23 11:30 102/75 08/22/23 11:20 92 H 14 113/85 96 08/22/23 11:15 113/85 08/22/23 11:15 90 12 98 08/22/23 11:00 95 H 16 97 08/22/23 11:00 104/86 08/22/23 10:45 97 H 13 99 08/22/23 10:45 101/81 08/22/23 10:30 98 H 14 97 08/22/23 10:30 105/83 08/22/23 10:15 89 20 98 08/22/23 10:15 114/82 08/22/23 10:00 110/90 08/22/23 10:00 99 H 23 97 08/22/23 09:56 92 H 23 99 08/22/23 09:56 115/80 08/22/23 08:44 104 H 08/22/23 08:39 36.8 C 103 H 18 O2 Del Method 08/22/23 12:15 08/22/23 12:15 08/22/23 12:00 08/22/23 12:00 08/22/23 11:50 Room Air 08/22/23 11:45 08/22/23 11:45 08/22/23 11:44 08/22/23 11:30 08/22/23 11:30 08/22/23 11:20 Room Air 08/22/23 11:15 08/22/23 11:15 08/22/23 11:00 08/22/23 11:00 08/22/23 10:45 08/22/23 10:45 08/22/23 10:30 08/22/23 10:30 08/22/23 10:15 08/22/23 10:15 08/22/23 10:00 08/22/23 10:00 08/22/23 09:56 08/22/23 09:56 08/22/23 08:44 08/22/23 08:39 PG Care Time/CCT Total # of Minutes Spent Total Time Spent with Patient: Total time spent is greater than 50% in coordination of care (as documented) at patient's floor/unit and/or counseling patient: A total of 60 minutes critical care time was taken for initial evaluation and examination, discussion with the patient, her family, and the care team, review of the records, formulation and implementation of a plan of care, and all associated documentation. This time is exclusive of the time spent for the procedure. Coding Level of Care Code 27749 CRITICAL CARE 1ST 30-74M Diagnoses Cardiac arrest with successful resuscitation I46.9 ST elevation myocardial infarction involving left anterior descending (LAD) coronary artery I21.02 Involved coronary artery: LAD coronary artery Primary hypertension I10 Hypertension type: primary hypertension Atherogenic dyslipidemia E78.5 Time Spent (min) 60 (2) ST elevation (STEMI) myocardial infarction Involved coronary artery: LAD coronary artery Qualified Code(s): I21.02 - ST elevation (STEMI) myocardial infarction involving left anterior descending coronary artery (3) Hypertension Hypertension type: primary hypertension Qualified Code(s): I10 - Essential (primary) hypertension
[2023-08-22] MEDS: INSULIN ASPART PER UNIT CHARGE SC SCH (17:33)
[2023-08-22] MEDS ORDERED: LORazepam 0.25 MG in SYRINGE 0.25 ML IV PRN (19:59)
[2023-08-22] MEDS ORDERED: LORazepam 0.25 MG in SYRINGE 0.125 ML IV PRN (20:42)
[2023-08-22] MEDS: METOPROLOL TARTRATE 25 MG TAB PO SCH (20:51)
[2023-08-22] MEDS: TICAGRELOR 90 MG TAB PO SCH (20:51)
[2023-08-22] MEDS ORDERED: LIDOCAINE 5% 1 PATCH TD ONE (21:00)
[2023-08-23] MEDS: AMIODARONE / D5W 360 MG/200 ML BAG IV SCH (00:39)
[2023-08-23] MEDS: INSULIN ASPART PER UNIT CHARGE SC SCH ×2 (01:32→06:00)
[2023-08-23 05:06] LABS: Albumin Level 3.5 gm/dl (3.4-5.0); Bilirubin Direct 0.2 mg/dl (0-0.2); Bilirubin,Total 0.8 mg/dl (0.2-1.0); Magnesium 1.9 mg/dl (1.7-2.4); Phosphorus 2.4 mg/dl (2.5-4.9); Total Protein 5.6 gm/dl (6.0-8.3)
[2023-08-23] MEDS ORDERED: MAGNESIUM SULFATE / D5W 1 GM/100 ML BAG IV ONE (06:30)
[2023-08-23] MEDS: TICAGRELOR 90 MG TAB PO SCH ×2 (07:42→20:53)
[2023-08-23] MEDS: ASPIRIN 81 MG ECTAB PO SCH (07:42)
[2023-08-23] MEDS: ATORVASTATIN 40 MG TAB PO SCH (07:43)
[2023-08-23] MEDS: METOPROLOL TARTRATE 25 MG TAB PO SCH ×2 (07:43→18:41)
[2023-08-23 08:00] LABS: BUN Creatinine Ratio 17.2 (10-20); Calcium 8.2 mg/dl (8.6-10.3); Creatinine Clr Calc Pharmacy 99.9 ml/min; Est GFR (African American) 124.9 ml/min; Est GFR (Non-African American) 107.8 ml/min; Potassium 4.1 mmol/L (3.5-5.1)
[2023-08-23] MEDS ORDERED: LORazepam 0.5 MG TAB PO PRN (09:48)
[2023-08-23 10:10] LABS: Chol HDL Ratio 3.4 (0-5)
[2023-08-23] MEDS: PANTOprazole 40 MG TAB PO SCH (10:22)
--- NOTE | 2023-08-23 10:42 | XCELERA ---
[id number]
[2023-08-23 11:42] LABS: Basophils # (auto) 0.05 K/uL (0.00-0.20); Basophils % (auto) 0.3 %; Eosinophils # (auto) 0.01 K/uL (0.00-0.50); Eosinophils % (auto) 0.1 %; Hematocrit (blood only) 34.7 % (37.0-47.0); Immature Granulocytes # (auto) 0.11 K/uL (0.01-0.20); Immature Granulocytes % (auto) 0.6 %; Lymphocytes # (auto) 2.01 K/uL (1.20-3.40); Lymphocytes % (auto) 10.9 %; Mean Corpuscular Hemoglobin 33.6 pg (25.0-34.0); Mean Corpuscular Hgb Conc 37.5 g/dL (32.0-36.0); Mean Corpuscular Volume 89.7 fL (80.0-100.0); Mean Platelet Volume 9.7 fL (9.4-12.4); Monocytes # (auto) 0.83 K/uL (0.11-0.59); Monocytes % (auto) 4.5 %; Neutrophils # (auto) 15.48 K/uL (1.40-6.50); Neutrophils % (auto) 83.6 %; Platelet Count 295 K/uL (130-400); RDW Coefficient of Variation 14.1 % (11.5-14.5); RDW Standard Deviation 45.4 fL (36.4-46.3); Red Blood Count 3.87 M/uL (4.20-5.40); White Blood Count 18.49 K/ul (4.8-10.8)
--- NOTE | 2023-08-23 11:56 | Electrocardiogram Report ---
Test Reason : Blood Pressure : / mmHG Vent. Rate : 105 BPM Atrial Rate : 105 BPM P-R Int : 158 ms QRS Dur : 078 ms QT Int : 370 ms P-R-T Axes : 081 041 003 degrees QTc Int : 489 ms Poor data quality, interpretation may be adversely affected Age and gender specific ECG analysis Sinus tachycardia Low voltage QRS Acute anterior infarction Lateral injury pattern ACUTE AL / STEMI Abnormal ECG No previous ECGs available Confirmed by Crispin Ramirez ([id number]) on 08/23/2023 11:56:22 AM Referred By: REFERRED SELF Confirmed By:Crispin Ramirez
--- NOTE | 2023-08-23 12:18 | Electrocardiogram Report ---
Test Reason : Blood Pressure : / mmHG Vent. Rate : 082 BPM Atrial Rate : 082 BPM P-R Int : 152 ms QRS Dur : 078 ms QT Int : 396 ms P-R-T Axes : 080 049 068 degrees QTc Int : 462 ms Normal sinus rhythm Normal ECG When compared with ECG of 22-AUG-2023 10:11, T wave inversion now evident in Anterior leads Confirmed by Crispin Ramirez ([id number]) on 08/23/2023 12:17:52 PM Referred By: REFERRED SELF Confirmed By:Crispin Ramirez
[2023-08-23] MEDS ORDERED: RIVAROXABAN 2.5 MG TAB PO ONE (12:30)
--- NOTE | 2023-08-23 17:46 | Cardiology Progress Note ---
Date of Service August 23, 2023 Assessment & Plan (1) Ventricular fibrillation: Plan: No recurrence. We can stop the amiodarone drip at this time. Maintain normal potassium and magnesium. (2) ST elevation (STEMI) myocardial infarction: Plan: Status post PCI with large caliber long drug-eluting stent to the proximal and mid LAD. Good angiographic results. She will remain on dual antiplatelet therapy with aspirin 81 mg daily and Brilinta 90 mg p.o. twice daily. At this time she is appropriate for transfer to stepdown unit. (3) Coronary artery disease: Plan: Severe multivessel. PCI was performed on the culprit LAD. She does have moderate residual disease in the RCA which will be treated with guideline directed medical therapy. Her heart rate and blood pressure are at target. Continue low-dose aspirin, metoprolol, atorvastatin, and angiotensin receptor janette/Entresto. (4) Atherogenic dyslipidemia: Plan: Patient is high risk. High intensity statin therapy has been initiated with a atorvastatin 40 mg daily. Total cholesterol was 128 mg/dL, triglycerides 60 mg/dL, LDL 78 mg/dL and HDL 38 mg/dL. Her HDL is well below target for a female. Her LDL is relatively low but needs to be reduced further given her high risk status. (5) Ischemic cardiomyopathy: Plan: Moderate to severe LV systolic dysfunction secondary to acute proximal LAD occlusion. I suspect that her EF will improve on appropriate medications and post revascularization. She currently has no evidence of volume overload. I have recommended that she be fitted for a wearable defibrillator because she has significant risk of sudden cardiac (VT/V-fib arrest). We will reassess her EF after 3 months therapy. So far she has not required any loop diuretics. We will continue to titrate her chronic heart failure regimen as tolerated. At this time we will change her metoprolol to tartrate to metoprolol succinate. I will also try to initiate Entresto therapy but if her blood pressure will not tolerate this then hopefully she will tolerate at least a low-dose of valsartan. Consider a SGLT2 inhibitor plus or minus spironolactone prior to discharge. (6) Hypertension: Plan: Currently on metoprolol and we will add an angiotensin receptor janette. We will consider Entresto although her blood pressure may preclude the addition of Entresto. Additional adjuvant therapy will be considered as well. (7) LV (left ventricular) mural thrombus: Plan: Initial echo images were concerning for significant LV thrombus. The contrast- enhanced images did not clearly show thrombus but could not completely exclude small thrombus. Her apex and anterior wall are akinetic thereby predisposing her to thrombus formation. Until her wall motion improves she will remain at risk for LV thrombus. For this reason, I have elected to initiate "triple therapy" in the short-term. She was started on Xarelto 2.5 mg p.o. twice daily in addition to the aspirin 81 mg daily and Brilinta 90 mg p.o. twice daily. While the triple therapy does increase her risk of bleeding, the lower dose will reduce that risk someone and the triple therapy should provide adequate prevention of thrombus formation. We will reassess her EF and evidence of thrombus in the near future. Risk of thrombus formation will be highest over the next 30 days. Plan Transfer to stepdown. Adjust her medical regimen as appropriate for ischemic ca rdiomyopathy. May be ready for discharge as early as tomorrow but will await the wearable defibrillator and her response to her medications. Strongly encourage CARDIAC REHAB as an outpatient. Admission and Anticipated Discharge Date Admission Date: August 22, 2023 Subjective Patient did well overnight. No further chest pain although she did have some dyspnea while ambulating in the room. She is fatigued. No pain at the right radial access site. Her echocardiogram was completed. This demonstrated EF of 30 to 35% with LAD territory wall motion abnormalities which were severe. Questionable small apical thrombus. No further arrhythmia on the monitor. She states that she feels swollen/bloated. No other complaints or concerns at this time. Review of Systems Review of Systems: Negative except as per HPI Physical Exam Constitutional: WD/WN, vitals as above Eyes: Extraocular muscles intact. Sclera are anicteric. ENMT: Oral mucosa is pink moist and intact Neck: No JVD or bruits Respiratory: Clear to auscultation bilaterally. No wheezing, rhonchi, or rales. Cardiovascular: Regular rate and rhythm. S4 gallop. No rubs or murmurs appreciated. No edema. 2+ distal pulses. Musculoskeletal: no cyanosis or clubbing, extremities motor strength 5/5 (Radial access site C/D/I. Good distal perfusion) Neurologic: Cognition is intact. Speech is fluent. No focal deficits. No tremor. Psychiatric: A+Ox3, euthymic affect Results & Data Vital Signs (Past 12 Hours) Vital Signs Pulse Pulse Resp BP BP Pulse Ox O2 Del Method 08/23/23 16:28 89 14 119/92 99 Room Air 08/23/23 14:56 82 08/23/23 12:00 82 14 98 Room Air 08/23/23 11:09 68 08/23/23 10:00 68 20 98 08/23/23 09:04 84 15 08/23/23 08:00 128/95 08/23/23 08:00 79 20 98 08/23/23 08:00 64 08/23/23 07:00 129/95 08/23/23 07:00 71 17 98 08/23/23 06:45 72 16 97 08/23/23 06:00 64 19 133/98 96 08/23/23 05:50 65 17 97 08/23/23 05:40 64 17 96 PG Care Time/CCT Total # of Minutes Spent Total Time Spent with Patient: Total time spent is greater than 50% in coordination of care (as documented) at patient's floor/unit and/or counseling patient: Coding Level of Care Code 29381 SUB INP/OBS CARE 3/50MIN Diagnoses Ventricular fibrillation I49.01 ST elevation myocardial infarction involving left anterior descending (LAD) coronary artery I21.02 Involved coronary artery: LAD coronary artery Coronary artery disease I25.10 Atherogenic dyslipidemia E78.5 Ischemic cardiomyopathy I25.5 Primary hypertension I10 Hypertension type: primary hypertension LV (left ventricular) mural thrombus I51.3 (2) ST elevation (STEMI) myocardial infarction Involved coronary artery: LAD coronary artery Qualified Code(s): I21.02 - ST elevation (STEMI) myocardial infarction involving left anterior descending coronary artery (6) Hypertension Hypertension type: primary hypertension Qualified Code(s): I10 - Essential (primary) hypertension
[2023-08-23] MEDS: ACETAMINOPHEN 325 MG TAB PO PRN (19:37)
[2023-08-23] MEDS: RIVAROXABAN 2.5 MG TAB PO SCH (20:53)
[2023-08-23] MEDS: VALSARTAN/SACUBITRIL 26/24MG TAB PO SCH (20:54)
--- NOTE | 2023-08-23 22:23 | Hospitalist Progress Note ---
Date of Service August 23, 2023 Assessment & Plan (1) ST elevation (STEMI) myocardial infarction: Plan: Patient with anterio-lateral STEMI with 100% occlusion of the LAD. Now s/p CARLENE placement in the LAD by Dr. Easley on 08/22. Stable on amiodarone gtt. Now on DAPT with Brilinta and ASA. Started on atorvastatin 40 mg and metoprolol 25 mg BID. Follow electrolyte abnormalities with AM BMP. Cath showeed: Summary: 1. Successful PCI with implantation of a long and large caliber drug-eluting stent to the proximal to mid LAD. 2. Severe LAD stenosis is culprit for cardiac arrest and TX. Patient has mild residual coronary disease as described. 3. Patient will be on dual antiplatelet therapy using aspirin and Brilinta to complete 1 year. 4. Patient will be initiated on guideline directed medical therapy for secondary prevention of coronary disease to include; low-dose aspirin, high intensity statin therapy, beta-janette, plus or minus BERNABE inhibitor/ARB as tolerated. 5. Strongly recommend CARDIAC REHAB be initiated as an outpatient. DAPT - Brilinta and ASA ECHO ordered: left ventricular mural thrombus will place on xarelto as per cardiology.. CXR ordered (2) Cardiac arrest with successful resuscitation: Plan: Stable on amiodarone gtt. Continue to monitor with continuous cardiac monitoring. Amiodarone drip has been discontinued (3) Hyperglycemia: Plan: No know history of diabetes. Screening glucose level in 2021 was < 90. May be reactive in the setting of recent TX. Glycemic consult placed. Continue to monitor. (4) Hypertension: Plan: Holding home olmesartan in setting of recent TX and soft BPs. (5) Hypokalemia: Plan: Monitor and replete as indicated (6) Anxiety: Plan: Continue home citalopram. (7) Status post insertion of drug-eluting stent into left anterior descending (LAD) artery: Plan: See above (8) Ventricular fibrillation: Plan: See above Plan Code status: full DVT ppx: on DAPT FENGI: Heart Healthy Dispo: ICU level care in the post-interventional period Admission and Anticipated Discharge Date Admission Date: August 22, 2023 Subjective Patient reports having SOB upon exertion. Review of Systems Review of Systems: All systems reviewed & are unremarkable except as noted in HPI & below Physical Exam Physical Exam: Gen: well appearing female in NAD, resting comfortably in bed HEENT: AT NC MMM CV: RRR, no m/r/g, right radial hemostasis band in place with no strike through, cap refill < good perfusion of right arm Resp: CTAB no wheezing no increased work of breathing no accessory muscle use Abd: soft, non-distended MSK: no obvious deformities Skin: no rashes or bruising noted Neuro: alert and oriented Psych: appropriate mood and affect, tearful Results & Data Results & Data Vital Signs (Past 12 Hours) Vital Signs Temp Pulse Pulse Resp BP Pulse Ox O2 Del Method 08/23/23 19:34 37.1 C 90 19 124/98 97 Room Air 08/23/23 16:28 89 14 119/92 99 Room Air 08/23/23 14:56 82 08/23/23 12:00 82 14 98 Room Air 08/23/23 11:09 68 PG Care Time/CCT Total # of Minutes Spent Total Time Spent with Patient: Total time spent is greater than 50% in coordination of care (as documented) at patient's floor/unit and/or counseling patient: Coding Level of Care Code 53810 SUB INP/OBS CARE 3/50MIN Diagnoses ST elevation myocardial infarction involving left anterior descending (LAD) coronary artery I21.02 Involved coronary artery: LAD coronary artery Cardiac arrest with successful resuscitation I46.9 Hyperglycemia R73.9 Primary hypertension I10 Hypertension type: primary hypertension Hypokalemia E87.6 Anxiety F41.9 Status post insertion of drug-eluting stent into left anterior descending (LAD) artery Z95.5 Ventricular fibrillation I49.01 (1) ST elevation (STEMI) myocardial infarction Involved coronary artery: LAD coronary artery Qualified Code(s): I21.02 - ST elevation (STEMI) myocardial infarction involving left anterior descending coronary artery (4) Hypertension Hypertension type: primary hypertension Qualified Code(s): I10 - Essential (primary) hypertension
[2023-08-24 04:53] LABS: BUN Creatinine Ratio 11.1 (10-20); Calcium 8.5 mg/dl (8.6-10.3); Creatinine Clr Calc Pharmacy 88.8 ml/min; Est GFR (African American) 117.2 ml/min; Est GFR (Non-African American) 101.1 ml/min; Magnesium 1.8 mg/dl (1.7-2.4); Phosphorus 1.3 mg/dl (2.5-4.9); Potassium 3.8 mmol/L (3.5-5.1)
[2023-08-24] MEDS ORDERED: POTASSIUM PHOS 3 MMOL/1 ML INFUSION IV STA (05:15)
[2023-08-24] MEDS ORDERED: POTASSIUM PHOSPHATE 21 MMOL in SODIUM CHLORIDE 0.9% 500 ML IV ONE (05:30)
[2023-08-24 06:18] LABS: Hematocrit (blood only) 36.5 % (37.0-47.0); Hemoglobin 13.5 g/dl (12.0-16.0); Mean Corpuscular Hemoglobin 32.5 pg (25.0-34.0); Mean Platelet Volume 9.6 fL (9.4-12.4); Platelet Count 270 K/uL (130-400); RDW Coefficient of Variation 13.8 % (11.5-14.5); RDW Standard Deviation 44.4 fL (36.4-46.3); Red Blood Count 4.15 M/uL (4.20-5.40)
[2023-08-24] MEDS ORDERED: METOPROLOL SUCC 50MG EXT REL TAB PO SCH (09:00)
[2023-08-24] MEDS ORDERED: EMPAGLIFLOZIN 10 MG TAB PO SCH (09:00)
[2023-08-24] MEDS: VALSARTAN/SACUBITRIL 26/24MG TAB PO SCH (09:48)
[2023-08-24] MEDS: ASPIRIN 81 MG ECTAB PO SCH (09:49)
[2023-08-24] MEDS: ATORVASTATIN 40 MG TAB PO SCH (09:49)
[2023-08-24] MEDS: TICAGRELOR 90 MG TAB PO SCH (09:49)
[2023-08-24] MEDS: PANTOprazole 40 MG TAB PO SCH (09:50)
[2023-08-24] MEDS: RIVAROXABAN 2.5 MG TAB PO SCH (09:50)
[2023-08-24 10:25] LABS: Basophils # (auto) 0.05 K/uL (0.00-0.20); Basophils % (auto) 0.3 %; Eosinophils # (auto) 0.02 K/uL (0.00-0.50); Eosinophils % (auto) 0.1 %; Hemoglobin 15.4 g/dl (12.0-16.0); Immature Granulocytes # (auto) 0.11 K/uL (0.01-0.20); Immature Granulocytes % (auto) 0.6 %; Lymphocytes # (auto) 1.85 K/uL (1.20-3.40); Lymphocytes % (auto) 10.8 %; Mean Corpuscular Hemoglobin 33.4 pg (25.0-34.0); Mean Corpuscular Hgb Conc 37.6 g/dL (32.0-36.0); Mean Corpuscular Volume 88.9 fL (80.0-100.0); Mean Platelet Volume 9.2 fL (9.4-12.4); Monocytes # (auto) 1.31 K/uL (0.11-0.59); Monocytes % (auto) 7.7 %; Neutrophils # (auto) 13.73 K/uL (1.40-6.50); Neutrophils % (auto) 80.5 %; Platelet Count 282 K/uL (130-400); RDW Coefficient of Variation 13.9 % (11.5-14.5); RDW Standard Deviation 44.7 fL (36.4-46.3); Red Blood Count 4.61 M/uL (4.20-5.40); White Blood Count 17.07 K/ul (4.8-10.8)
[2023-08-24 10:42] LABS: HBSAG NON-REACTIVE (NON-REACTIVE); Hepatitis A Antibody IgM NON-REACTIVE (NON-REACTIVE); Hepatitis B Core Antibody IgM NON-REACTIVE (NON-REACTIVE)
--- NOTE | 2023-08-24 12:08 | Discharge Summary ---
Date of Service August 24, 2023 Admission HPI Per Admitting Provider 43 y/o female here for evaluation of chest pain. Patient with intermittently chest pain the evening of 08/21. Patient significantly worse this AM with localization to the substernal region and radiates into the left arm. EMS was called and EKG showed anterior lateral stroke. Patient ASA loaded and given a spray of nitro. Patient then went into ventricular fibrillation and was pulseless. CPR initiated and several shocks were administered during the route to the hospital with a total of 5 shocks, 300 mg IV amiodarone, 2 g of IV mag. Patient was seen at bedside by Dr. Easley and taken to the labor service representative. 100% occlu amairani in LAD thus CARLENE placed. Patient now on amiodarone gtt and stable in the ICU. Upon my interview, patient denies any chest pain, nausea, calf tenderness, or shortness of breath. Symptoms resolved at present. Patient generally in good health. Screening lipids and glucose have been normal in the past. Hypertension well controlled on olmesartan. Principal Diagnosis STEMI Discharge Exam Gen: well appearing female in NAD, resting comfortably in bed HEENT: AT NC MMM CV: RRR, no m/r/g Resp: CTAB Abd: soft, non-distended MSK: no obvious deformities Skin: no rashes or bruising noted Neuro: alert and oriented Psych: appropriate mood and affect Discharge Data Allergies Allergy/AdvReac Type Severity Reaction Status Date / Time No Known Allergies Allergy Mild Verified 11/17/06 14:51 Consultations 08/22/23 08:52 Consult Hardboard Grinder Routine 08/22/23 09:53 Consult Cardiac Rehabilitation Routine 08/23/23 17:33 Consult Cardiology Routine Procedures Performed Operation Date: 08/22/23 08:35 Actual Procedures s Cineradiography w/Routine Exam - Ronald Price MD, PhD p Aspiration/PCI w/CARLENE for Stemi - Ronald Price MD, PhD p Cath, Coronaries ONLY (no LV) - Ronald Price MD, PhD Ordered Studies 08/22/23 08:37 CL Cath Imgs for PACS use only Stat Hospital Course (1) ST elevation (STEMI) myocardial infarction: Patient with anterio-lateral STEMI with 100% occlusion of the LAD. Now s/p CARLENE placement in the LAD by Dr. Easley on 08/22. Stable on amiodarone gtt. Now on DAPT with Brilinta and ASA. Started on atorvastatin 40 mg and metoprolol 25 mg BID. Follow electrolyte abnormalities with AM BMP. Cath showeed: Summary: 1. Successful PCI with implantation of a long and large caliber drug-eluting stent to the proximal to mid LAD. 2. Severe LAD stenosis is culprit for cardiac arrest and ID. Patient has mild residual coronary disease as described. 3. Patient will be on dual antiplatelet therapy using aspirin and Brilinta to complete 1 year. 4. Patient will be initiated on guideline directed medical therapy for secondary prevention of coronary disease to include; low-dose aspirin, high intensity statin therapy, beta-janette, plus or minus BERNABE inhibitor/ARB as tolerated. (2) Cardiac arrest with successful resuscitation: Stable on amiodarone gtt. Continue to monitor with continuous cardiac monitoring. (3) Hyperglycemia: No know history of diabetes. Screening glucose level in 2021 was < 90. May be reactive in the setting of recent ID. Glycemic consult placed. Continue to monitor. (4) Hypertension: Holding home olmesartan in setting of recent ID and soft BPs. (5) Hypokalemia: Monitor and replete as indicated (6) Anxiety: Continue home citalopram. (7) Status post insertion of drug-eluting stent into left anterior descending (LAD) artery: See above (8) Ventricular fibrillation: See above Total Time Total Time Spent Total Time Spent (In Minutes): 32 Discharge Plan Discharge Items Patient Disposition: Home - Self-Care Reason For Visit: STEMI, CARDIAC ARREST Discharge Diagnosis: Cardiac arrest Anterolateral ST elevation ID Ischemic cardiomyopathy (EF 30 to 35%) Atherogenic dyslipidemia Benign essential hypertension Status post PCI (drug-eluting stent LAD) Multivessel coronary artery disease Possible small LV thrombus Activity: Per Instructions section Non-emergency contact: Primary Care Provider and Mold Preparer Call non-emergency contact if: you have any medication questions, your symptoms worsen, your pain is not controlled, you have a fever, your wound has increased redness and your wound has increased drainage Diet: Heart Healthy Addtl Attending Provider Instructions: ACTIVITY RECOMMENDATIONS: It is common to feel weak and fatigue for a few days. * Do not drive or operate any motorized equipment for the next three days. * Limit stair usage (2 or 3 trips a day only) for the next three days. * Do not lift anything heavier than 10 pounds for the next three days. * Do not engage in vigorous exercise or any sports for the next five days. * You may shower the day after your procedure, but do not immerse the area for three days. Cleanse the site gently with soap and water. SPECIAL CARE INSTRUCTIONS: * You may replace the pressure dressing or band-aid the morning after the procedure. * After your procedure, it is normal to have a small bruise or small lump at the site. Examine your site daily for any change in the bruise or lump, redness, swelling, drainage or numbness. Notify your doctor if any change. BLEEDING: * If there is a small amount of bleeding at the site, lie down and apply firm pressure with a clean cloth for ten minutes. When the bleeding stops, lie quietly keeping the procedure limb straight for six hours. Notify your doctor as soon as possible. * If the bleeding does not stop after ten minutes or if there is a large amount of bleeding or spurting, call 911 immediately. Continue to lie down and hold firm pressure until help arrives. SKIN IRRITATION: * You may experience some redness and/or swelling in the area where radiation was administered. If any skin irritation occurs, please contact your family physician. FOLLOW UP VISIT: Keep any scheduled doctor appointments. Pending Studies at Discharge: No Stand-Alone Forms: [facility], Smoking Cessation Medications and DC Order Prescriptions: New atorvastatin 40 mg Tablet 40 mg PO QAM Qty: 90 3RF metoprolol succinate 50 mg Tablet Extended Release 24 Hr 50 mg PO QAM Qty: 90 3RF aspirin 81 mg Tablet,Delayed Release (Dr/Ec) 81 mg PO QAM Qty: 90 3RF Brilinta 90 mg Tablet 90 mg PO BID Qty: 60 11RF Jardiance 10 mg Tablet 10 mg PO DAILY Qty: 30 11RF Entresto 24-26 mg Tablet 1 tab PO BID Qty: 60 11RF Xarelto 2.5 mg Tablet 2.5 mg PO BID Qty: 60 2RF Continued Multivit/Min/Iron/Fol Ac/Pren ( Vitamin) tablet Qty: 0 citalopram 10 mg tablet 5 - 10 mg PO DAILY Discontinued Ibuprofen (Motrin) 600 MG tablet 600 mg PO Q6HR Qty: 30 1RF Rx Instructions: PRN PAIN olmesartan 20 mg tablet 20 mg PO DAILY Discharge Orders: Discharge Order (Routine); Ordered 08/24/23 Ordered By: Ronald Price Admission Data Admit Date/Time: 08/22/23 08:54 Attending Provider: Cecilio Villanueva Admit Provider: Brenton Porter Primary Care Provider: PCP,NO Other Providers: Cecilio Villanueva; Trent Angelo; Ronald Price Other Interventions: Discharge Summary Assessment (RN) Last Done: 08/24/23 11:47 Coding Level of Care Code 00926 INP/OBS DISCH >[address] elevation myocardial infarction involving left anterior descending (LAD) coronary artery I21.02 Involved coronary artery: LAD coronary artery Cardiac arrest with successful resuscitation I46.9 Hyperglycemia R73.9 Primary hypertension I10 Hypertension type: primary hypertension Hypokalemia E87.6 Anxiety F41.9 Status post insertion of drug-eluting stent into left anterior descending (LAD) artery Z95.5 Ventricular fibrillation I49.01
--- NOTE | 2023-08-24 12:12 | Cardiology Progress Note ---
Date of Service August 24, 2023 Assessment & Plan (1) LV (left ventricular) mural thrombus: Plan: This is questionable but she is certainly at risk for development of thrombus. This is being addressed using aspirin 81 mg daily, Brilinta 90 mg p.o. twice daily, and Xarelto 2.5 mg twice daily. We will reevaluate with echo and anticipate that maximum duration of her "triple therapy" will be 30 days. (2) Ischemic cardiomyopathy: Plan: Moderately to severely reduced EF (30 to 35%) post AZ. Good angiographic results of PCI. Anticipate she will have significant recovery of LV function. Currently without any evidence of volume overload and has not required any loop diuretic. Her EF will be reevaluated in 3 months on maximum therapy. Currently with Assure wearable defibrillator for prophylaxis of SCD. Current heart failure regimen includes; metoprolol succinate ER 50 mg daily, Entresto 24/26 mg p.o. twice daily, and Jardiance 10 mg p.o. daily. (3) Coronary artery disease: Plan: Severe LAD stenosis treated with drug-eluting stent. Moderate RCA stenosis residual. On her current regimen her heart rate and blood pressure are at target. Continue guideline directed medical therapy for secondary prevention using aspirin 81 mg daily, a atorvastatin 40 mg daily, metoprolol succinate ER 50 mg daily, and angiotensin receptor janette (valsartan as part of Entresto). (4) Atherogenic dyslipidemia: Plan: Patient is high risk. High intensity statin therapy ongoing with a atorvastatin 40 mg daily. Her LDL was actually not bad but she will require further reduction per guidelines. Her HDL was too low for a female. (5) Status post insertion of drug-eluting stent into left anterior descending (LAD) artery: Plan: Patient with cardiac arrest successfully resuscitated and acute anterolateral ST elevation AZ secondary to proximal LAD occlusion now status post PCI with large caliber long drug-eluting stent in the proximal and mid LAD. She will remain on dual antiplatelet therapy. There is some additive benefit of low-dose Xarelto 2.5 mg p.o. twice daily for ASCVD. We are also utilizing this triple therapy given potential LV thrombus despite increased risk of bleed. We will reassess for thrombus. If she has significant thrombus then I will likely recommend change to Plavix plus full-strength Xarelto (20 mg daily). However, if there is no identifiable thrombus or if the risk for thrombus formation is diminished (EF/wall motion improves) then we will not need to utilize any Xarelto and she will remain on aspirin plus Brilinta. Plan At this time patient is appropriate for discharge from a cardiovascular standpoint. She has an appointment with me scheduled for 09/05/2023 at 2:30 PM. She will have outpatient referral to CARDIAC REHAB. Admission and Anticipated Discharge Date Admission Date: August 22, 2023 Subjective Patient without any further chest pain. No lightheadedness or dizziness. Mild fatigue and ambulatory dyspnea. She has tolerated her medical regimen including the Entresto from a blood pressure standpoint. Defibrillator vest has been provided. She voices no other complaints or concerns at this time. Review of Systems Review of Systems: Negative except as per HPI Physical Exam Constitutional: WD/WN, vitals as above Neck: No JVD Respiratory: Clear to auscultation bilaterally. No wheezing, rhonchi, or rales. Cardiovascular: RRR, no murmur, no edema (No edema) Musculoskeletal: no cyanosis or clubbing, extremities motor strength 5/5 (Good distal perfusion right hand) Neurologic: Cognition intact, speech fluent, no focal deficits. Ambulates normally. No tremor. Psychiatric: A+Ox3, euthymic affect Results & Data Vital Signs (Past 12 Hours) Vital Signs Temp Pulse Pulse Resp BP Pulse Ox O2 Del Method 08/24/23 11:47 36.9 C 85 16 117/90 98 08/24/23 08:24 86 08/24/23 03:04 36.9 C 85 16 117/90 98 Room Air PG Care Time/CCT Total # of Minutes Spent Total Time Spent with Patient: Total time spent is greater than 50% in coordination of care (as documented) at patient's floor/unit and/or counseling patient: Coding Level of Care Code 01500 SUB INP/OBS CARE 10/03MIN Diagnoses LV (left ventricular) mural thrombus I51.3 Ischemic cardiomyopathy I25.5 Coronary artery disease I25.10 Atherogenic dyslipidemia E78.5 Status post insertion of drug-eluting stent into left anterior descending (LAD) artery Z95.5
== END 2023-08-24 12:56 | disposition home or self-care (01) | DRG 321 ==
LOC: ED 08:38 → CC 08:53 → 1E 08:54 → SUATTDRO 08:54
PROC: CLB.CCO (~2023-08-22)